=== PATIENT | male | born 1985 | race Caucasian/White ===

== ENCOUNTER 2017-06-11 17:16 | Emergency (ER) | payer BC, OTHER ==
--- NOTE | 2017-06-11 17:39 | EDM.PDOC ---
ED HPI GENERAL MEDICAL PROBLEM - General Chief Complaint: Upper Extremity Injury/Pain Stated Complaint: injury to righ shoulder, slipped getting out of semi truck Time Seen by Provider: 06/11/17 17:25 Source of Information: Reports: Patient, RN History Limitations: Reports: No Limitations - History of Present Illness INITIAL COMMENTS - FREE TEXT/NARRATIVE: 32 yr male presents with injury to right shoulder. States was getting out of semi truck, was holding on to steering wheel and slipped and pulled right arm above head, when he slipped. States he feels like he is going to pass out. Onset: Today Onset Date: 06/11/17 Onset Time: 17:36 Location: Reports: Lower Extremity, Right Severity: Severe Improves with: Reports: Rest Worsens with: Reports: Movement Right Shoulder Pain Score (Numeric/FACES): 13 Review of Systems - Review of Systems Review Of Systems: See Below Musculoskeletal: Reports: Shoulder Pain, Joint Pain. Denies: Hand Pain, Joint Swelling Skin: Reports: No Symptoms Neurological: Reports: No Symptoms Psychiatric: Reports: No Symptoms ED EXAM, GENERAL - Physical Exam Exam: See Below Exam Limited By: No Limitations General Appearance: Alert, Mild Distress Respiratory/Chest: No Respiratory Distress Peripheral Pulses: 2+: Radial (L), Radial (R) Extremities: Normal Capillary Refill, Arm Pain, Limited Range of Motion Neurological: Alert, Oriented Psychiatric: Normal Affect Skin Exam: Warm, Dry, Intact Course - Vital Signs Last Recorded V/S: Last Vital Signs Temp 97.7 F 06/11/17 18:23 Pulse 87 06/11/17 18:23 Resp 20 06/11/17 18:23 BP 124/72 06/11/17 18:23 Pulse Ox 98 06/11/17 18:23 - Orders/Labs/Meds Orders: Active Orders 24 hr Category Date Time Status Shoulder Comp Rt [CR] Stat Exams 06/11/17 17:32 Taken Meds: Medications Discontinued Medications Generic Name Dose Route Start Last Admin Trade Name Freq PRN Reason Stop Dose Admin Hydrocodone Bitart/Acetaminophen Confirm 06/11/17 18:00 06/11/17 18:04 [place] 325-5 Mg Administered 06/11/17 18:01 2 tab Dose Administration 2 tab .ROUTE .STK-MED ONE - Re-Assessments/Exams Free Text/Narrative Re-Assessment/Exam: 06/11/17 18:08 X-ray of shoulder completed. Dislocation noted. Contacted [facility] and will have pt present to ER for putting arm back into place. Reviewed result with pt. Pain medication given and sling to be applied. Departure - Departure Time of Disposition: 18:35 Disposition: Home, Self-Care 01 Condition: Good Clinical Impression: Dislocation closed, shoulder - Discharge Information Referrals: PCP,None [Primary Care Provider] - Forms: ED Department Discharge Additional Instructions: F/U to ER Dr Magno Navarro. - My Orders Last 24 Hours: My Active Orders 06/11/17 17:32 Shoulder Comp Rt [CR] Stat - Assessment/Plan Last 24 Hours: My Active Orders 06/11/17 17:32 Shoulder Comp Rt [CR] Stat
[2017-06-11] MEDS ORDERED: Acetaminophen/HYDROcodone 325-5 MG Tab ONE (18:00)
--- NOTE | 2017-06-12 11:42 | CR ---
DATE OF SERVICE: 06/11/17 CLINICAL DATA: injury right shoulder RIGHT SHOULDER: Limited views were obtained. There is anterior dislocation of the glenohumeral joint with anterior and inferior dislocation of the humeral head with respect to the glenoid. I do not see any fractures. [id number] [facility] [place]
== END 2017-06-11 18:29 | disposition home or self-care (01) ==
LOC: LB.ED 17:16
DX: S43.014A Anterior dislocation of right humerus, initial encounter (principal); S43.034A Inferior dislocation of right humerus, initial encounter; W17.89XA Other fall from one level to another, initial encounter
CPT/HCPCS: 73030; 99283; A9270

== ENCOUNTER 2019-06-03 22:47 | Emergency (ER) | payer BC, OTHER ==
[2019-06-03] MEDS ORDERED: Amoxicillin/Clavulanate K 875-125 MG Tab ONE (23:15)
[2019-06-03] MEDS ORDERED: Codeine/guaiFENesin 100mg-10 MG/5 ML Soln 118 ML Bottle ONE (23:15)
--- NOTE | 2019-06-04 00:07 | ER ---
HPI: A 34-year-old male here with complaints of passing out at home this evening about a half hour ago after an episode of extended coughing. He has been dealing with a head cold and thinks he has a sinus infection. The patient tells me that he woke up on the floor. He was out for less than 30 seconds. The only injury he sustained was a bump to the left upper arm. The patient denies any head or neck pain and states he feels fine at this point. He does have a fairly persistent hoarse sounding cough. The patient denies any chest pain. He tells me that this did happen once before a couple of years ago. OBJECTIVE: GENERAL APPEARANCE: The patient is awake and alert. Pleasant and talkative, no obvious distress. VITAL SIGNS: Reviewed. He is afebrile. Pulse is 82, blood pressure 145/88, O2 sats are 95% on room air. HEENT: Eyes pupils equal, round, and reactive to light. EOMs are intact. Head is normocephalic. There is no sign of head injury. Ears, TMs are dull. Nares are patent. Oral mucous membranes moist. Posterior pharynx shows drainage and scattered cobblestoning. The patient has minimal bimaxillary sinus discomfort with palpation. LUNGS: Clear. CARDIAC: Heart sounds distinct. S1, S2 present. Regular rate. No murmurs. SKIN: Warm and dry. NEURO: The patient is able stand and walk around the emergency room, walking briskly without any discomfort, and he has a smooth steady gait. He has full ROM of the left arm. There is a small bruise on the anterior arm just below the shoulder. DIAGNOSES: 1. Syncopal episode due to extended coughing. 2. Sinusitis. TREATMENT PLAN: Augmentin will be started 875 b.i.d. for 10 days and we will give the patient Robitussin AC to use 1 teaspoon q.6 hours regularly while awake for the next couple of days and then p.r.n. for coughing. Activity should be as tolerated. Followup is p.r.n. CRS/MODL /[id number] NIMO
== END 2019-06-03 23:36 | disposition home or self-care (01) ==
LOC: LB.ED 22:47
DX: R55 Syncope and collapse (principal); R05 Cough; J32.9 Chronic sinusitis, unspecified
CPT/HCPCS: 99283; A9270-GY

== ENCOUNTER 2019-10-21 14:00 | Emergency (ER) | payer BC | END 2019-10-21 14:15 | disposition other institution (70) | LOC: LB.ED 14:00 | DX: Z13.9 Encounter for screening, unspecified (principal) ==